=== PATIENT | female | born 1965 | race Caucasian/White ===

== ENCOUNTER 2017-06-20 10:18 | Inpatient (IN) | payer BC ==
[~2017-06-20] VITALS: Ht 162.6 cm; Wt 80.2 kg
[~2017-06-20 10:18] MED LIST: ALPR0.5T PO; CITA10TA59 PO; CYCL-181 PO; FURO80TA PO; IBUP400T21 PO; LISI-275 PO; METO25TA5 PO; NOR10T PO; POT20T PO; TRAZ50TA2 PO
[2017-06-20] MEDS ORDERED: SODIUM CHLORIDE 0.9% 500 ML IVB ONE (10:46)
[2017-06-20] MEDS ORDERED: PANTOPRAZOLE 40 MG/10 ML VIAL IV STA (10:46)
[2017-06-20 10:52] LABS: Basophils # (auto) 0 uL; Basophils % (auto) 0.7 % (0.0-2.0); Eosinophils # (auto) 0 uL; Eosinophils % (auto) 0.4 % (0.0-7.0); Hematocrit 44.3 % (36.0-46.0); Hemoglobin 14.9 g/dL (12.2-16.2); Lymphocytes # (auto) 1.7 uL; Lymphocytes % (auto) 33.5 % (10.0-50.0); Mean Corpuscular Hemoglobin 31.7 pg (28.0-32.0); Mean Corpuscular Hgb Conc. 33.7 g/dL (32.0-36.0); Mean Platelet Volume 7.3 fL (6.9-10.8); Monocytes # (auto) 0.4 uL; Monocytes % (auto) 7.3 % (0.0-12.0); Neutrophils # (auto) 2.9 uL; Neutrophils % (auto) 58.1 % (37.0-80.0); Nucleated Red Blood Cells % 0.3 %; Platelet Count (auto) 200 10^3/uL (140-450); Red Cell Distribution Width 13.1 % (11.8-14.3); White Blood Cell 5.1 10^3/uL (4.4-10.8)
[2017-06-20] MEDS ORDERED: ONDANSETRON HCL 4 MG/2 ML VIAL IV ONE (11:00)
[2017-06-20] MEDS ORDERED: MORPHINE SULFATE 4 MG/ML SYRG IV ONE (11:00)
[2017-06-20 11:07] LABS: Albumin 4.9 g/dL (3.4-5.0); BUN/Creatinine Ratio 16.8; Bilirubin, Total 0.5 mg/dL (0.2-1.0); Calcium 9.3 mg/dL (8.5-10.1); Potassium 3.5 mmol/L (3.5-5.1)
[2017-06-20] MEDS ORDERED: MORPHINE SULF INJ 2 MG/ML SYRINGE 1ML IV PRN (16:45)
[2017-06-20] MEDS ORDERED: NITROGLYCERIN 0.4 MG SL TAB SL PRN (16:45)
[2017-06-20] MEDS: DOBUTamine 1000MCG/ML 250 ML IV SCH (17:54)
[2017-06-20] MEDS: FUROSEMIDE INJECTION 100 MG in SODIUM CHL 0.9% 90 ML IV SCH (18:22)
[2017-06-20 20:15] VITALS: BP 121/75
[2017-06-20 20:38] VITALS: BP 121/75
[2017-06-20 20:43] LABS: Basophils # (auto) 0 uL; Basophils % (auto) 0.2 % (0.0-2.0); Eosinophils # (auto) 0 uL; Eosinophils % (auto) 0.4 % (0.0-7.0); Hematocrit 40.9 % (36.0-46.0); Hemoglobin 14.1 g/dL (12.2-16.2); Lymphocytes # (auto) 1.8 uL; Lymphocytes % (auto) 36.1 % (10.0-50.0); Mean Corpuscular Hemoglobin 32.1 pg (28.0-32.0); Mean Corpuscular Hgb Conc. 34.3 g/dL (32.0-36.0); Mean Corpuscular Volume 93.4 fL (80.0-100.0); Mean Platelet Volume 7.6 fL (6.9-10.8); Monocytes # (auto) 0.3 uL; Monocytes % (auto) 6.9 % (0.0-12.0); Neutrophils # (auto) 2.8 uL; Neutrophils % (auto) 56.4 % (37.0-80.0); Nucleated Red Blood Cells % 0.1 %; Platelet Count (auto) 198 10^3/uL (140-450); Red Cell Distribution Width 13.2 % (11.8-14.3)
[2017-06-20] MEDS: HYDROcodone-ACET 5/325MG TAB PO PRN (20:53)
[2017-06-20] MEDS: GABAPENTIN 400 MG CAP PO SCH (20:54)
[2017-06-20] MEDS: LISINOPRIL 10 MG TAB PO SCH (20:54)
[2017-06-20] MEDS: METOPROLOL TARTRATE 25 MG TAB PO SCH (20:55)
[2017-06-20 20:58] LABS: Albumin 4.1 g/dL (3.4-5.0); Anion Gap 9 (5-15); Aspartate Aminotransferase 17 U/L (15-37); BUN/Creatinine Ratio 18.9; Blood Urea Nitrogen 17 mg/dL (7-18); Calcium 8.3 mg/dL (8.5-10.1); Carbon Dioxide 25 mmol/L (21-32); Chloride 103 mmol/L (98-107); GFR African American 86 mL/min; GFR Non-African American 71 mL/min; Glucose 118 mg/dL (74-106); Magnesium 2.3 mg/dL (1.6-2.6); Potassium 3.3 mmol/L (3.5-5.1); Sodium 137 mmol/L (136-145)
[2017-06-20 21:03] LABS: Alkaline Phosphatase 72 U/L (45-117); Bilirubin, Total 0.4 mg/dL (0.2-1.0); Total Protein 8.1 g/dL (6.4-8.2)
[2017-06-20 21:06] LABS: B-Type Natriuretic Peptide 13.56 pg/mL (0-100)
[2017-06-20 21:27] LABS: Temperature: 22.7 C (20.0-25.0)
[2017-06-20] MEDS ORDERED: POTASSIUM CHL 20 Meq TABLET PO ONE ×2 (22:15→23:15)
[2017-06-20 23:38] VITALS: BP_SYST 121; BP_DIAS 74; BP_DIAS 75
[2017-06-21] MEDS ORDERED: POTASSIUM CHL 20 Meq TABLET PO ONE (00:15)
[2017-06-21 03:50] VITALS: BP 101/57
[2017-06-21] MEDS: DOBUTamine 1000MCG/ML 250 ML IV SCH ×2 (04:47→16:51)
[2017-06-21] MEDS: FUROSEMIDE INJECTION 100 MG in SODIUM CHL 0.9% 90 ML IV SCH (04:47)
[2017-06-21] MEDS: GABAPENTIN 400 MG CAP PO SCH ×3 (05:36→21:59)
[2017-06-21 05:43] LABS: Basophils # (auto) 0 uL; Basophils % (auto) 0.1 % (0.0-2.0); Eosinophils # (auto) 0 uL; Eosinophils % (auto) 0.4 % (0.0-7.0); Hematocrit 40.7 % (36.0-46.0); Hemoglobin 14.1 g/dL (12.2-16.2); Lymphocytes # (auto) 1.4 uL; Lymphocytes % (auto) 31.5 % (10.0-50.0); Mean Corpuscular Hemoglobin 32.3 pg (28.0-32.0); Mean Corpuscular Hgb Conc. 34.6 g/dL (32.0-36.0); Mean Corpuscular Volume 93.4 fL (80.0-100.0); Mean Platelet Volume 7.6 fL (6.9-10.8); Monocytes # (auto) 0.4 uL; Monocytes % (auto) 9.5 % (0.0-12.0); Neutrophils # (auto) 2.6 uL; Neutrophils % (auto) 58.5 % (37.0-80.0); Platelet Count (auto) 205 10^3/uL (140-450); Red Cell Distribution Width 13.3 % (11.8-14.3); White Blood Cell 4.4 10^3/uL (4.4-10.8)
[2017-06-21] MEDS: HYDROcodone-ACET 5/325MG TAB PO PRN ×2 (05:57→20:50)
[2017-06-21 06:01] LABS: Albumin 4.3 g/dL (3.4-5.0); BUN/Creatinine Ratio 13.4; Calcium 8.3 mg/dL (8.5-10.1); Potassium 3.6 mmol/L (3.5-5.1)
[2017-06-21 06:03] LABS: Bilirubin, Total 0.4 mg/dL (0.2-1.0); Total Protein 8.3 g/dL (6.4-8.2)
[2017-06-21 08:00] VITALS: BP 113/78
[2017-06-21] MEDS: LISINOPRIL 10 MG TAB PO SCH ×2 (10:00→22:00)
[2017-06-21] MEDS: METOPROLOL TARTRATE 25 MG TAB PO SCH ×2 (10:16→22:00)
[2017-06-21 12:00] VITALS: BP 107/63
[2017-06-21] MEDS ORDERED: FUROSEMIDE INJECTION 100 MG in D5W 5% 90 ML IV SCH ×4 (14:15)
[2017-06-21] MEDS ORDERED: FUROSEMIDE INJECTION 250 MG in D5W 5% 225 ML IV SCH (15:15)
[2017-06-21 16:00] VITALS: BP 118/67
[2017-06-21] MEDS ORDERED: PROG200C6 PO (17:48)
[2017-06-21] MEDS ORDERED: [UNRECOGNIZED DRUG - CODE] PO (17:48)
[2017-06-21 20:00] VITALS: BP 126/83
[2017-06-22] VITALS: BP 97/57
[2017-06-22] MEDS: DOBUTamine 1000MCG/ML 250 ML IV SCH ×2 (03:52→15:48)
[2017-06-22 04:04] VITALS: BP 109/63
[2017-06-22 05:40] LABS: Albumin 4.4 g/dL (3.4-5.0); BUN/Creatinine Ratio 19.8; Bilirubin, Total 0.5 mg/dL (0.2-1.0); Calcium 8.4 mg/dL (8.5-10.1); Potassium 3.7 mmol/L (3.5-5.1); Total Protein 8.5 g/dL (6.4-8.2)
[2017-06-22] MEDS: GABAPENTIN 400 MG CAP PO SCH ×2 (05:48→17:00)
[2017-06-22 08:00] VITALS: BP 130/76
[2017-06-22] MEDS: METOPROLOL TARTRATE 25 MG TAB PO SCH (10:07)
[2017-06-22] MEDS: LISINOPRIL 10 MG TAB PO SCH (10:08)
[2017-06-22 12:05] VITALS: BP 101/62
[2017-06-22] MEDS: HYDROcodone-ACET 5/325MG TAB PO PRN (12:50)
[2017-06-22 16:43] VITALS: BP 118/74
[2017-06-22 16:48] VITALS: BP 111/71
== END 2017-06-22 17:36 | disposition home or self-care (01) | DRG 292 ==
LOC: ER 10:18 → TELE 10:19 → DOU IN ICU 20:09 → TELE-CENTR 06-22 09:25
PROVIDERS: ADMIT Internal Medicine Cardiovascular Disease; ATTEND Internal Medicine Cardiovascular Disease
DX: I50.21 Acute systolic (congestive) heart failure (principal); I42.0 Dilated cardiomyopathy; E87.6 Hypokalemia; Z95.810 Presence of automatic (implantable) cardiac defibrillator; Z88.8 Allergy status to other drugs, medicaments and biological substances; Z90.710 Acquired absence of both cervix and uterus; M19.90 Unspecified osteoarthritis, unspecified site
CPT/HCPCS: 36415; 71010; 76705; 80053; 83735; 83880; 84484; 85025; 87081; 93005; C9113; J2405; J7060

== ENCOUNTER → 2017-07-29 | Outpatient (CLI) | payer BC ==
[~2017-07-29] MED LIST changes: +PROG200C6 PO; +[UNRECOGNIZED DRUG - CODE] PO
== END | disposition home or self-care (01) ==
LOC: Rad HDHVI 09:58
PROVIDERS: ATTEND Internal Medicine Cardiovascular Disease
DX: I08.1 Rheumatic disorders of both mitral and tricuspid valves (principal); Z95.0 Presence of cardiac pacemaker
CPT/HCPCS: 93306

== ENCOUNTER → 2018-07-09 | Outpatient (CLI) | payer BC | END | disposition home or self-care (01) | LOC: Rad HDHVI 12:54 | PROVIDERS: ATTEND Internal Medicine Cardiovascular Disease | DX: I08.1 Rheumatic disorders of both mitral and tricuspid valves (principal); I42.0 Dilated cardiomyopathy; I50.23 Acute on chronic systolic (congestive) heart failure | CPT/HCPCS: 93306 ==

== ENCOUNTER → 2018-07-17 | Outpatient (CLI) | payer BC ==
[2018-07-17 15:30] LABS: Albumin 4.2 g/dL (3.4-5.0); Anion Gap 5 (5-15); Blood Urea Nitrogen 10 mg/dL (7-18); Carbon Dioxide 28 mmol/L (21-32); Chloride 104 mmol/L (98-107); Glucose 105 mg/dL (74-106); Potassium 3.7 mmol/L (3.5-5.1); Sodium 137 mmol/L (136-145)
[2018-07-17 15:33] LABS: Basophils # (auto) 0 uL; Eosinophils # (auto) 0.1 uL; Monocytes # (auto) 0.3 uL; Nucleated Red Blood Cells % 0.9 %; White Blood Cell 5.4 10^3/uL (4.4-10.8)
[2018-07-17 15:35] LABS: Alanine Aminotransferase 26 U/L (13-56); Alkaline Phosphatase 79 U/L (45-117); Aspartate Aminotransferase 16 U/L (15-37); BUN/Creatinine Ratio 10.6; Basophils % (auto) 0.4 % (0.0-2.0); Bilirubin, Total 0.5 mg/dL (0.2-1.0); Cholesterol 364 mg/dL (< 200); Eosinophils % (auto) 1.1 % (0.0-7.0); GFR African American > 60 mL/min; GFR Non-African American > 60 mL/min; HDL Cholesterol 54 mg/dL (40-59); Hematocrit 43.2 % (36.0-46.0); Hemoglobin 14.7 g/dL (12.2-16.2); Lymphocytes # (auto) 1.3 uL; Lymphocytes % (auto) 23.1 % (10.0-50.0); Mean Corpuscular Volume 103.1 fL (80.0-100.0); Monocytes % (auto) 5.4 % (0.0-12.0); Neutrophils # (auto) 3.8 uL; Platelet Count (auto) 199 10^3/uL (140-450); Red Blood Cells 4.19 10^6/uL (4.0-5.20); Red Cell Distribution Width 14.8 % (11.8-14.3); Total Protein 7.7 g/dL (6.4-8.2); Triglycerides 555 mg/dL (< 150)
[2018-07-17 15:36] LABS: Free T4 (Free Thyroxine) 1.07 ng/dL (0.89-1.76)
== END | disposition home or self-care (01) ==
LOC: LAB 12:53
PROVIDERS: ATTEND Internal Medicine Cardiovascular Disease
DX: E03.9 Hypothyroidism, unspecified (principal); E11.9 Type 2 diabetes mellitus without complications; E55.9 Vitamin D deficiency, unspecified; D51.9 Vitamin B12 deficiency anemia, unspecified; N39.0 Urinary tract infection, site not specified
CPT/HCPCS: 36415; 80053; 80061; 82306; 82607; 83036; 84439; 84443; 85025

== ENCOUNTER → 2018-10-15 | Outpatient (CLI) | payer BC ==
[2018-10-15 13:55] LABS: Hepatitis B Surface Antibody Negative
[2018-10-15 14:33] LABS: Hepatitis A Total Antibody Negative
[2018-10-15 15:37] LABS: Hepatitis B Core Total AB Negative; Hepatitis B Surface Antigen Negative (Negative)
[2018-10-15 15:41] LABS: Hepatitis C Antibody Negative (Negative)
== END | disposition home or self-care (01) ==
LOC: LAB 08:42
PROVIDERS: ATTEND Internal Medicine Cardiovascular Disease
DX: Z94.1 Heart transplant status (principal)
CPT/HCPCS: 36415; 86703; 86704; 86706; 86708; 86803; 86850; 86900; 86901; 87340

== ENCOUNTER → 2018-10-19 | Outpatient (CLI) | payer BC ==
[2018-10-19 17:32] LABS: Creatinine, Urine 31 mg/dL (30.0-125.0); Protein, Urine < 5.0 mg/dL (0.0-11.9)
[2018-10-19 19:57] LABS: 24 Hr. Total Protein, Urine 64.99987 mg/24 Hr (<149.1); Urine Total Volume, 24 Hours 1300 mL
== END | disposition home or self-care (01) ==
LOC: LAB 14:06
PROVIDERS: ATTEND Internal Medicine Cardiovascular Disease
DX: Z94.1 Heart transplant status (principal)
CPT/HCPCS: 82575; 84156

== ENCOUNTER → 2019-01-13 | Outpatient (CLI) | payer BC ==
[~2019-01-13] MED LIST changes: +FURO1TAB32 PO; -FURO80TA PO; +PROG1CAP2 PO; -PROG200C6 PO
== END | disposition home or self-care (01) ==
LOC: Rad HDHVI 14:02
PROVIDERS: ATTEND Internal Medicine Cardiovascular Disease
DX: I08.1 Rheumatic disorders of both mitral and tricuspid valves (principal); R07.89 Other chest pain; I50.33 Acute on chronic diastolic (congestive) heart failure
CPT/HCPCS: 93306

== ENCOUNTER → 2019-01-26 | Outpatient (CLI) | payer BC | END | disposition home or self-care (01) | LOC: Rad HDHVI 13:55 | PROVIDERS: ATTEND Internal Medicine Cardiovascular Disease | DX: I42.0 Dilated cardiomyopathy (principal); I11.0 Hypertensive heart disease with heart failure; I50.33 Acute on chronic diastolic (congestive) heart failure | CPT/HCPCS: 93880 ==

== ENCOUNTER → 2020-02-22 | Outpatient (CLI) | payer BC | END | disposition home or self-care (01) | LOC: Rad HDHVI 14:51 | PROVIDERS: ATTEND Internal Medicine Cardiovascular Disease | DX: I08.1 Rheumatic disorders of both mitral and tricuspid valves (principal); I51.7 Cardiomegaly; I42.0 Dilated cardiomyopathy; I50.42 Chronic combined systolic (congestive) and diastolic (congestive) heart failure; Z95.0 Presence of cardiac pacemaker | CPT/HCPCS: 93306 ==

== ENCOUNTER → 2020-06-16 | Outpatient (CLI) | payer BC ==
[2020-06-16 13:20] LABS: Urine Blood Negative /uL (Negative); Urine Specific Gravity 1.026 (1.001-1.035)
[2020-06-16 13:22] LABS: Basophils # (auto) 0 10 ^3/uL (0-0.2); Basophils % (auto) 0.5 % (0.0-2.0); Eosinophils # (auto) 0.1 10 ^3/uL (0-0.8); Eosinophils % (auto) 1.2 % (0.0-7.0); Hematocrit 37.7 % (36.0-46.0); Hemoglobin 12.9 g/dL (12.2-16.2); Lymphocytes # (auto) 1.4 10 ^3/uL (0.4-5.4); Lymphocytes % (auto) 26.4 % (10.0-50.0); Mean Corpuscular Hemoglobin 33.3 pg (28.0-32.0); Mean Corpuscular Hgb Conc. 34.3 g/dL (32.0-36.0); Mean Corpuscular Volume 97.2 fL (80.0-100.0); Monocytes # (auto) 0.4 10 ^3/uL (0-1.3); Monocytes % (auto) 7.4 % (0.0-12.0); Neutrophils # (auto) 3.5 10 ^3/uL (1.6-8.6); Neutrophils % (auto) 64.5 % (37.0-80.0); Nucleated Red Blood Cells % 0.1 %; Platelet Count (auto) 241 10^3/uL (140-450); Red Blood Cells 3.88 10^6/uL (4.0-5.20); Red Cell Distribution Width 14.3 % (11.8-14.3); White Blood Cell 5.5 10^3/uL (4.4-10.8)
[2020-06-16 13:54] LABS: Albumin 3.9 g/dL (3.4-5.0); Calcium 8.6 mg/dL (8.5-10.1); Potassium 4.2 mmol/L (3.5-5.1)
[2020-06-16 13:59] LABS: BUN/Creatinine Ratio 10.8; Bilirubin, Direct 0.2 mg/dL (0-0.2); Bilirubin, Total 0.5 mg/dL (0.2-1.0); Total Protein 7.1 g/dL (6.4-8.2)
== END | disposition home or self-care (01) ==
LOC: LAB 12:49
PROVIDERS: ATTEND Internal Medicine Cardiovascular Disease
DX: Z00.00 Encounter for general adult medical examination without abnormal findings (principal); E03.9 Hypothyroidism, unspecified; K90.9 Intestinal malabsorption, unspecified; D51.9 Vitamin B12 deficiency anemia, unspecified; N39.0 Urinary tract infection, site not specified; Z79.899 Other long term (current) drug therapy
CPT/HCPCS: 36415; 80048; 80061; 80076; 81003; 82306; 82607; 83036; 84443; 85025

== ENCOUNTER 2023-08-25 07:01 | Day surgery (SDC) | payer MEDICARE, BC ==
[~2023-08-25] VITALS: Ht 162.6 cm; Wt 90.7 kg
[~2023-08-25 07:01] MED LIST changes: -ALPR0.5T PO; -CITA10TA59 PO; +GABA-1250 PO; -IBUP400T21 PO; -LISI-275 PO; +METO-6 PO; -METO25TA5 PO; -POT20T PO; -PROG1CAP2 PO; +ROSU10TA16 PO; +SACU1TAB7 PO; -TRAZ50TA2 PO; -[UNRECOGNIZED DRUG - CODE] PO
[2023-08-25] MEDS ORDERED: VANCOMYCIN 1GM/200ML 200 ML IV ONE ×2 (07:47→08:00)
[2023-08-25] MEDS ORDERED: LIDOCAINE 2%HCL (LOCAL ANESTH.) INJ 20ML MDV ONE (08:28)
[2023-08-25] MEDS ORDERED: fentaNYL CITRATE 100 MCG/2 ML VL ONE (08:34)
[2023-08-25] MEDS ORDERED: VANCOMYCIN HCL 1000 MG VL ONE ×2 (08:34→08:52)
[2023-08-25] MEDS ORDERED: MIDAZOLAM HCL 2MG/2ML 2ml VIAL (1mg/ml) ONE ×2 (08:35→09:05)
[2023-08-25] MEDS ORDERED: ceFAZolin 1GM/50ML 50 ML IV ONE (08:55)
[2023-08-25 10:04] VITALS: BP 132/73; PULSE 68; RESP 12; TEMP 97.7; O2SAT 98
[2023-08-25 10:19] VITALS: BP 134/72; PULSE 63; RESP 15; O2SAT 100
[2023-08-25 10:34] VITALS: BP 116/57; PULSE 62; RESP 12; O2SAT 92
[2023-08-25 10:49] VITALS: BP 116/65; PULSE 64; RESP 14; O2SAT 92
[2023-08-25 11:00] VITALS: BP 124/65; PULSE 64; RESP 14; O2SAT 96
== END 2023-08-25 11:10 | disposition home or self-care (01) ==
LOC: CATH 07:01
PROVIDERS: ATTEND Specialist
DX: T82.121A Displacement of cardiac pulse generator (battery), initial encounter (principal); I25.5 Ischemic cardiomyopathy; I50.9 Heart failure, unspecified
CPT/HCPCS: 33264; C1882; J0690; J2250; J3010; J3370; J7030; 99152